=== PATIENT | female | born 1990 | race Caucasian/White ===

== ENCOUNTER 2016-08-23 07:39 | Emergency (ER) | payer BC ==
[2016-08-23] MEDS ORDERED: OPTIRAY 350 100 ML VIAL HMH IV ONE (07:40)
[2016-08-23] MEDS ORDERED: ONDANSETRON 4 MG VIAL ONE ×2 (08:02→11:17)
[2016-08-23] MEDS ORDERED: SODIUM CHLORIDE 0.9% 1,000 ML ONE (08:03)
[2016-08-23] MEDS ORDERED: KETOROLAC 30 MG/ML VIAL ONE (08:03)
== END 2016-08-23 13:02 | disposition home or self-care (01) ==
LOC: ER 07:39
DX: A08.4 Viral intestinal infection, unspecified (principal)
CPT/HCPCS: 36415; 74177; 80053; 81003; 83630; 83690; 84703; 85025; 87045; 87046; 87177; 87493; 96361; 96374; 96375; 96376